=== PATIENT | female | born 1995 | race Caucasian/White ===

== ENCOUNTER 2019-07-30 05:39 | Inpatient (IN) ==
[2019-07-30 06:23] LABS: Apearance,Urine CLEAR (Clear); Bacteria,Urine Occasional /HPF (Few); Bilirubin,Urine Negative (Negative); Blood, Urine Negative (Negative); Glucose,Urine (UA) Negative (Negative); Ketones,Urine Negative (Negative); Nitrite,Urine Negative (Negative); Protein,Urine Negative; RBC,Urine 1 /HPF (0-4); Squamous Epithelial Cell,Urine Occasional /HPF (0-10); Urine Color Straw (Yellow); Urine Specific Gravity 1.005 (1.001-1.035); Urine Urobilinogen < 2.0 EU/DL (0.2-1.0); WBC,Urine <1 /HPF (0-6)
[2019-07-30] MEDS ORDERED: ONDANSETRON 4 MG/2 ML VIAL IV PRN (10:12)
[2019-07-30] MEDS ORDERED: BUTORPHANOL 2 MG/ML VIAL IV PRN (10:12)
[2019-07-30] MEDS ORDERED: LACTATED RINGERS 1,000 ML IV SCH ×2 (10:30→15:30)
[2019-07-30] MEDS ORDERED: OXYTOCIN/LR 20 UNIT/1,000 ML BAG IV SCH (10:30)
[2019-07-30 10:39] LABS: Basophils # 0.1 10*3/uL (0.0-0.2); Basophils % 0.4 % (0.0-0.8); Eosinophils % 0.1 % (0.00-10.9); Hematocrit 39.4 VOL% (35.7-47.0); Hemoglobin 13.1 GM/DL (12.0-16.0); Immature Granulocytes % 1.1 %; Immature Granulocytes Absolute 0.15 #; Lymphocytes # 1.6 10*3/uL (1.4-4.0); Lymphocytes % 11.6 % (21.3-54.2); Mean Corpuscular HGB Conc 33.2 GM/DL (32-36); Mean Corpuscular Volume 90.4 FL (87-102); Mean Platelet Volume 10.1 FL (9.6-12.0); Monocytes % 5.5 % (1.7-12.7); Neutrophils % 81.3 % (38.7-73.9); Platelet Count 285 T/CUMM (130-400); Red Blood Count 4.36 MC/CUMM (3.8-5.5); Red Cell Distribution Width 12.7 % (9.3-17.3); White Blood Count 13.9 T/CUMM (4-12)
[2019-07-30 11:17] LABS: Alanine Aminotransferase 16 U/L (13-56); Albumin 3.1 G/DL (3.4-5.0); Alkaline Phosphatase 91 U/L (45-117); Aspartate Amino Transferase 13 U/L (0-37); Bilirubin,Total < 0.39 MG/DL (0.2-1.0); Blood Urea Nitrogen 6 MG/DL (7-18); Calcium 8.4 MG/DL (8.5-10.1); Estimated Glom Filtration Rate 160 ML/MIN; Glucose 89 MG/DL (74-106); Osmolality,Calculated 271.7 MOS/KG (273-304); Total Protein 7.6 G/DL (6.4-8.3)
[2019-07-30] MEDS ORDERED: CITRIC ACID/SODIUM CITRATE 30 ML UDCUP PO ONE (15:03)
[2019-07-30] MEDS ORDERED: LACTATED RINGERS 1,000 ML IV ONE (15:03)
[2019-07-30] MEDS ORDERED: ePHEDrine 50 MG/ML AMP IV PRN (15:03)
[2019-07-30] MEDS ORDERED: diphenhydrAMINE 50 MG/1 ML VIAL IV PRN ×2 (15:03)
[2019-07-30] MEDS ORDERED: FAMOTIDINE 20 MG/2 ML VIAL IV ONE (15:03)
[2019-07-30] MEDS ORDERED: NALOXONE 0.4 MG/ML VIAL IV PRN (15:03)
[2019-07-30] MEDS ORDERED: PROMETHAZINE 25 MG/1 ML VIAL IM ONE (15:03)
[2019-07-30] MEDS ORDERED: LACTATED RINGERS 250 ML IV PRN (15:03)
[2019-07-30] MEDS ORDERED: CITRIC ACID/SODIUM CITRATE 30 ML UDCUP ONE (15:06)
[2019-07-30] MEDS ORDERED: fentaNYL 2 MCG/ROPIV 0.2% EPID 100 ML EPIDURAL SCH (15:30)
[2019-07-30] MEDS ORDERED: miSOPROStoL 200 MCG TABLET ONE (16:52)
[2019-07-30] MEDS ORDERED: METHYLERGONOVINE 0.2 MG/1 ML AMP ONE (16:52)
[2019-07-30] MEDS ORDERED: CARBOPROST TROMETHAMINE 250 MCG/ML AMP IM ONE (16:53)
[2019-07-30] MEDS ORDERED: OXYTOCIN/LR 20 UNIT/1,000 ML BAG IV ONE (22:13)
[2019-07-30] MEDS ORDERED: KETOROLAC 30 MG/1 ML VIAL IV SCH (23:00)
[2019-07-31] MEDS: IBUPROFEN 800 MG TABLET PO PRN ×2 (03:27→12:14)
[2019-07-31] MEDS ORDERED: BENZOCAINE 20%/MENTHOL 0.5% SPRAY 56 GM CAN TOP PRN (05:29)
[2019-07-31 05:57] LABS: Basophils # 0.1 10*3/uL (0.0-0.2); Basophils % 0.3 % (0.0-0.8); Eosinophils % 0.2 % (0.00-10.9); Hematocrit 33.6 VOL% (35.7-47.0); Immature Granulocytes % 0.8 %; Immature Granulocytes Absolute 0.14 #; Lymphocytes # 2.7 10*3/uL (1.4-4.0); Mean Corpuscular HGB Conc 32.7 GM/DL (32-36); Mean Corpuscular Volume 91.3 FL (87-102); Mean Platelet Volume 10.2 FL (9.6-12.0); Monocytes % 8.4 % (1.7-12.7); Neutrophils % 74.3 % (38.7-73.9); Platelet Count 219 T/CUMM (130-400); Red Blood Count 3.68 MC/CUMM (3.8-5.5)
[2019-07-31] MEDS: MULTIVITAMIN (PRENATAL) TABLET PO SCH (09:09)
[2019-07-31] MEDS: DOCUSATE SODIUM 100 MG CAPSULE PO PRN ×2 (09:09→21:28)
[2019-08-01] MEDS: IBUPROFEN 800 MG TABLET PO PRN (05:40)
[2019-08-01 09:01] VITALS: BP 105/54
[2019-08-01] MEDS: MULTIVITAMIN (PRENATAL) TABLET PO SCH (09:59)
[2019-08-01] MEDS: DOCUSATE SODIUM 100 MG CAPSULE PO PRN (10:00)
== END 2019-08-01 12:25 | disposition home or self-care (01) | DRG 807 ==
LOC: N.LDOUT 05:39 → N.LD 05:40 → N.OB 22:00
PROVIDERS: ADMIT Obstetrics & Gynecology; ATTEND Obstetrics & Gynecology

== ENCOUNTER 2022-06-28 01:13 | Inpatient (IN) ==
[2022-06-28 01:51] LABS: Bacteria,Urine Occasional /HPF (Few); Bilirubin,Urine Negative (Negative); Blood, Urine Small mg/dL (Negative); Glucose,Urine (UA) Negative (Negative); Ketones,Urine Negative (Negative); Mucus,Urine Occasional /LPF (Occasional); Nitrite,Urine Negative (Negative); Protein,Urine Negative (Negative); RBC,Urine 1 /HPF (0-4); Squamous Epithelial Cell,Urine Occasional /HPF (0-10); Urine Appearance CLEAR (Clear); Urine Color Straw (Yellow); Urine Specific Gravity 1.006 (1.001-1.035); Urine Urobilinogen < 2.0 eU/dL (<2.0)
[2022-06-28] MEDS ORDERED: MEPERIDINE 25 MG/1 ML VIAL IV PRN (03:12)
[2022-06-28] MEDS ORDERED: BUTORPHANOL 1 MG/ML VIAL IV PRN (03:12)
[2022-06-28] MEDS ORDERED: ACETAMINOPHEN 500 MG TABLET PO PRN (03:12)
[2022-06-28] MEDS ORDERED: MEPERIDINE 50 MG/1 ML VIAL IV PRN (03:12)
[2022-06-28] MEDS ORDERED: OXYTOCIN/LR 20 UNIT/1,000 ML BAG IV ONE ×3 (03:12→08:04)
[2022-06-28] MEDS ORDERED: DINOPROSTONE 10 MG VAG.INSERT VAG ONE (03:12)
[2022-06-28] MEDS ORDERED: CARBOPROST TROMETHAMINE 250 MCG/ML AMP IM PRN (03:12)
[2022-06-28] MEDS ORDERED: ONDANSETRON 4 MG/2 ML VIAL IV PRN ×2 (03:12→08:04)
[2022-06-28] MEDS ORDERED: LACTATED RINGERS 500 ML IV PRN (03:12)
[2022-06-28] MEDS ORDERED: miSOPROStoL 200 MCG TABLET RECTAL PRN (03:12)
[2022-06-28] MEDS ORDERED: TRANEXAMIC ACID 1,000 MG in SODIUM CHLORIDE 0.9% 100 ML IV PRN (03:12)
[2022-06-28] MEDS ORDERED: BUTORPHANOL 2 MG/ML VIAL IV PRN (03:12)
[2022-06-28] MEDS ORDERED: METHYLERGONOVINE 0.2 MG/1 ML AMP IM PRN (03:12)
[2022-06-28] MEDS ORDERED: LACTATED RINGERS 1,000 ML IV SCH (03:30)
[2022-06-28] MEDS ORDERED: miSOPROStoL 100 MCG TABLET PO ONE ×2 (03:34→05:00)
[2022-06-28 04:04] LABS: Basophils # 0.1 10*3/uL (0.0-0.2); Basophils % 0.5 % (0.0-0.8); Eosinophils % 0.2 % (0.00-10.9); Hematocrit 36.9 VOL% (35.7-47.0); Hemoglobin 12.7 GM/DL (12.0-16.0); Immature Granulocytes % 1.7 %; Immature Granulocytes Absolute 0.24 #; Lymphocytes # 1.3 10*3/uL (1.4-4.0); Lymphocytes % 9.3 % (21.3-54.2); Mean Corpuscular HGB Conc 34.4 GM/DL (32-36); Mean Corpuscular Volume 88.9 FL (87-102); Mean Platelet Volume 10.4 FL (9.6-12.0); Monocytes # 0.8 10*3/uL (0.11-0.8); Monocytes % 5.7 % (1.7-12.7); Neutrophils % 82.6 % (38.7-73.9); Platelet Count 228 T/CUMM (130-400); Red Blood Count 4.15 MC/CUMM (3.8-5.5); Red Cell Distribution Width 13.4 % (9.3-17.3); White Blood Count 14.5 T/CUMM (4-12)
[2022-06-28 04:42] LABS: Alanine Aminotransferase 18 U/L (13-56); Albumin 3.2 G/DL (3.4-5.0); Alkaline Phosphatase 111 U/L (45-117); Aspartate Amino Transferase 11 U/L (0-37); Bilirubin,Total < 0.39 MG/DL (0.20-1.00); Blood Urea Nitrogen 9 MG/DL (7-18); Calcium 9.3 MG/DL (8.5-10.1); Carbon Dioxide 20 MMOL/L (21-32); Chloride 111 MMOL/L (98-107); Glucose 103 MG/DL (74-106); Osmolality,Calculated 275.5 MOS/KG (273-304); Potassium 3.8 MMOL/L (3.5-5.1); Sodium 139 MMOL/L (136-145); Total Protein 7.4 G/DL (6.4-8.2)
[2022-06-28] MEDS ORDERED: diphenhydrAMINE 50 MG/1 ML VIAL IV PRN ×2 (06:41)
[2022-06-28] MEDS ORDERED: PROMETHAZINE 25 MG/1 ML VIAL IM ONE (06:41)
[2022-06-28] MEDS ORDERED: NALOXONE 0.4 MG/ML VIAL IV PRN (06:41)
[2022-06-28] MEDS ORDERED: ePHEDrine 50 MG/ML VIAL IV PRN (06:41)
[2022-06-28] MEDS ORDERED: ONDANSETRON 4 MG/2 ML VIAL IV ONE (06:41)
[2022-06-28] MEDS ORDERED: hydrOXYzine HCL 25 MG/1 ML VIAL IM PRN (06:41)
[2022-06-28] MEDS ORDERED: FAMOTIDINE 20 MG/2 ML VIAL IV ONE (06:41)
[2022-06-28] MEDS ORDERED: CITRIC ACID/SODIUM CITRATE 30 ML UDCUP PO ONE (06:41)
[2022-06-28] MEDS ORDERED: fentaNYL 2 MCG/ROPIV 0.2% EPID 100 ML EPIDURAL SCH (07:00)
[2022-06-28] MEDS ORDERED: miSOPROStoL 200 MCG TABLET ONE (07:28)
[2022-06-28] MEDS ORDERED: CARBOPROST TROMETHAMINE 250 MCG/ML AMP IM ONE (07:28)
[2022-06-28] MEDS ORDERED: METHYLERGONOVINE 0.2 MG/1 ML AMP ONE (07:28)
[2022-06-28 07:50] LABS: Cord Venous Blood HCO3 21.1 MMOL/L; Cord Venous Blood PCO2 38.2 MMHG; Cord Venous Blood PO2 34.2
[2022-06-28] MEDS ORDERED: DIPH/TET/ACEL PERT BOOSTER VACCINE 0.5 ML VIAL IM ONE (08:04)
[2022-06-28] MEDS ORDERED: ACETAMINOPHEN 325 MG TABLET PO PRN (08:04)
[2022-06-28] MEDS ORDERED: oxyCODONE/ACETAMINOPHEN 5-325 MG TABLET PO PRN (08:04)
[2022-06-28] MEDS ORDERED: BISACODYL 10 MG SUPP RECTAL PRN (08:04)
[2022-06-28] MEDS ORDERED: MEASLES/MUMPS/RUBELLA VACCINE 0.5 ML VIAL SUBCUT ONE (08:04)
[2022-06-28] MEDS ORDERED: RHO(D) IMMUNE GLOBULIN 300 MCG SYRINGE IM ONE (08:04)
[2022-06-28] MEDS ORDERED: LANOLIN 50% CREAM 0.3 OZ TUBE TOP PRN (08:04)
[2022-06-28] MEDS: IBUPROFEN 600 MG TABLET PO PRN (16:26)
[2022-06-28] MEDS: DOCUSATE SODIUM 100 MG CAPSULE PO SCH (21:33)
[2022-06-29 06:52] LABS: Basophils # 0.1 10*3/uL (0.0-0.2); Basophils % 0.5 % (0.0-0.8); Eosinophils # 0.1 10*3/uL (0.0-0.87); Eosinophils % 0.7 % (0.00-10.9); Hematocrit 33.2 VOL% (35.7-47.0); Hemoglobin 11.1 GM/DL (12.0-16.0); Immature Granulocytes % 1.7 %; Immature Granulocytes Absolute 0.23 #; Lymphocytes # 2.5 10*3/uL (1.4-4.0); Lymphocytes % 18.8 % (21.3-54.2); Mean Corpuscular HGB Conc 33.4 GM/DL (32-36); Mean Corpuscular Volume 91.2 FL (87-102); Mean Platelet Volume 10.9 FL (9.6-12.0); Monocytes # 1.1 10*3/uL (0.11-0.8); Monocytes % 8.2 % (1.7-12.7); Neutrophils % 70.1 % (38.7-73.9); Platelet Count 225 T/CUMM (130-400); Red Blood Count 3.64 MC/CUMM (3.8-5.5); Red Cell Distribution Width 13.6 % (9.3-17.3); White Blood Count 13.5 T/CUMM (4-12)
[2022-06-29] MEDS: DOCUSATE SODIUM 100 MG CAPSULE PO SCH ×2 (08:55→20:50)
[2022-06-29] MEDS: MULTIVITAMIN (PRENATAL) TABLET PO SCH (08:55)
[2022-06-29] MEDS ORDERED: INFLUENZA VIRUS VACCINE 0.5 ML SYRINGE IM ONE (09:00)
[2022-06-29] MEDS: IBUPROFEN 600 MG TABLET PO PRN (17:43)
[2022-06-30 07:31] VITALS: BP 108/60
[2022-06-30] MEDS: MULTIVITAMIN (PRENATAL) TABLET PO SCH (10:12)
[2022-06-30] MEDS: DOCUSATE SODIUM 100 MG CAPSULE PO SCH (10:12)
== END 2022-06-30 11:15 | disposition home or self-care (01) | DRG 806 ==
LOC: N.OBOUT 01:13 → N.LD 01:15 → N.OB 10:20
PROVIDERS: ADMIT Obstetrics & Gynecology; ATTEND Obstetrics & Gynecology